=== PATIENT | female | born 1970 | race Caucasian/White ===

== ENCOUNTER 2025-04-23 17:36 | Emergency (ER) | payer SELFPAY ==
[2025-04-23 17:45] VITALS: BP 114/71; PULSE 81; RESP 20; TEMP 36.2; O2SAT 98
[2025-04-23] MEDS: Tetracaine 0.5% 4 ML BTL OP (19:06)
[2025-04-23] MEDS: Ketorolac 15 MG/ML VIAL IVP (19:26)
[2025-04-23 19:29] LABS: Abs Immature Grans 0.00 10^3/uL (0.0-0.06); HCT 36.0 % (36.0-46.0); HGB 11.6 g/dL (11.2-15.7); Immature Grans % 0.0 %; MCH 29.8 pg (27.0-33.0); MCHC 32.2 % (32.0-36.0); MCV 93 fL (80-95); MPV 12.9 fL (8.0-11.0); Platelet Count 135 10^3/uL (130-400); RBC 3.89 10^6/uL (3.93-5.22); RDW 12.3 % (11.7-14.6); RDW-SD 41.5 fL; WBC 5.69 10^3/uL (4.4-10.8)
[2025-04-23 19:32] LABS: ESR 7 mm/hr (0-30)
[2025-04-23 19:43] LABS: RBC Morphology Normal
[2025-04-23 19:45] LABS: ALT 19 U/L (14-59); AST 17 U/L (15-37); Albumin 3.4 g/dL (3.4-5.0); Alkaline Phosphatase 86 U/L (46-116); Anion Gap 5.9 mmol/L (3-11); BUN 21 mg/dL (7-18); Bilirubin, Total 0.2 mg/dL (0.2-1.0); CO2 29.1 mmol/L (21.0-32.0); Calcium 8.8 mg/dL (8.5-10.1); Chloride 107 mmol/L (98-107); Estimated GFR 102.71 (mL/min/1.73m2); Glucose 101 mg/dL (74-106); Magnesium 2.0 mg/dL (1.8-2.4); Potassium 3.8 mmol/L (3.5-5.1); Sodium 142 mmol/L (136-145); Total Protein 6.7 g/dL (6.4-8.2)
[2025-04-23 19:46] LABS: C-Reactive Protein < 0.50 mg/dL (<or=0.5)
--- NOTE | 2025-04-23 20:57 | ED.GENADUL_ITS ---
Discharge Plan Disposition Patient Disposition: Home Condition: Stable Discharge Details Clinical Impression: Redness of eye, right, Acute eye pain Primary Care Provider: Unknown,Unknown ED Provider: Renetta Durbin Home Meds and New Rx's Prescriptions: No Action escitalopram oxalate 20 mg tablet 20 mg PO DAILY Discharge Instructions Instructions: Managing acute pain at home Additional Instructions: You were seen in the emergency department today for evaluation of right eye pain and redness. You had a full physical examination with preserved vision and no increased pressure in your eye, though we are concerned for potential anterior uveitis. You need to go down to [facility] tomorrow, they have scheduled an appointment for you at 9:30 AM. You will present to the ophthalmology clinic. Please continue to use Tylenol and ibuprofen overnight for your pain, and cold compresses to reduce inflammation. They may start you on medications when you are down there for that visit. Please follow-up with your primary care provider in the next few days to discuss this visit and any symptoms that change, worsen, or persist. Thank you for allowing us to be part of your care. Stand Alone Forms: Work Release Discharge Data Discharge Date/Time-TO BE ENTERED AT DEPARTURE: 04/23/25 21:17 HPI General Mode of arrival: ambulatory . Date/Time Provider Initiated Documentation: 04/23/25 18:43 . Limitations to Documentation: no limitations . Information obtained by: patient and old records reviewed . HPI Narrative: This is a 54-year-old female patient without significant past medical history presenting for evaluation of a red painful eye. The patient reports that this started yesterday while at work, denies any trauma or injury, foreign body, and did not have any exposure to significant light changes. She states that she feels a pressure behind her eye and pain in her shinto, eye turned red. She wears corrective lenses, does not have a history of glaucoma. She tried some Tylenol last night without improvement, had difficulty sleeping due to the pain. She has never had something like this happen to her before. Vision feels slightly blurry, patient endorses photophobia and pain with EOMs. She is not experiencing any associated weakness, numbness, nausea or vomiting. Related Data Home Medications ?Medication ?Instructions ?Recorded ?Confirmed escitalopram oxalate 20 mg tablet 20 mg PO DAILY 04/2304/23/25 Allergies Allergy/AdvReac Type Severity Reaction Status Date / Time No Known Allergies Allergy Unverified 04/23/25 17:44 General Stated Complaint: EyeProblem JARVIS: 3 Exam Narrative Exam Narrative: Gen: Awake and alert, in no apparent distress HEENT: The patient has a very red painful right eye. Visual acuity, corrected, 20/30 left eye, 20/40 right eye, 20/30 bilaterally. The conjunctiva is injected, pupils are equal and reaction to light and accommodation. EOMs are full but painful, no evidence of entrapment or nystagmus. The globes are soft and symmetrical. Right eye intraocular pressure measured at 10.8. Slit lamp examination without evidence of foreign body, no significant cell and flare appreciated within the anterior chamber. Right shinto tender to palpation without tortuosity or swelling/nodularity of the temporal artery palpable. Neck: Supple Lungs: No apparent respiratory distress, normal respiratory effort. CV: Appears well perfused Abdomen: Non-distended MSK: Moves 4 extremities without apparent limitation in ROM Skin: Visualized skin without rashes, cyanosis. Neuro: Normal Gait, no obvious focal deficits or facial asymmetry. Speaks in full, clear sentences. Psych: Appropriate for situation. Course Vital Signs Vital signs: Vital Signs Temperature 36.2 C L 04/23/25 17:45 Pulse 81 04/23/25 17:45 Respiratory Rate 20 04/23/25 17:45 Blood Pressure 114/71 04/23/25 17:45 Pulse Oximetry 98 04/23/25 17:45 Temperature 36.2 C L 04/23/25 17:45 Temperature Source Oral 04/23/25 17:45 Pulse 81 04/23/25 17:45 Respiratory Rate 20 04/23/25 17:45 Blood Pressure 114/71 04/23/25 17:45 Blood Pressure Position Sitting 04/23/25 17:45 Pulse Oximetry 98 04/23/25 17:45 Oxygen Delivery Method Room Air 04/23/25 17:45 Oxygen Flow Rate 0 04/23/25 17:45 Pain Level 10 04/23/25 17:45 Lab/Test Results Lab/Test Results: Laboratory Tests Range/Units 04/23/25 19:20 WBC (4.4-10.8) 10^3/uL 5.69 RBC (3.93-5.22) 10^6/uL 3.89 L Hgb (11.2-15.7) g/dL 11.6 Hct (36.0-46.0) % 36.0 MCV (80-95) fL 93 MCH (27.0-33.0) pg 29.8 MCHC (32.0-36.0) % 32.2 RDW (11.7-14.6) % 12.3 Plt Count (130-400) 10^3/uL 135 MPV (8.0-11.0) fL 12.9 H Immature Gran % % 0.0 Neutrophils % % 52.0 Lymphocytes % % 39.0 Monocytes % % 8.0 Eosinophils % % 1.0 Basophils % % 0.0 Nucleated RBC % (0.0-0.3) % 0.0 Absolute Neutrophils (1.2-6.7) 10^3/uL 2.96 Absolute Lymphocytes (1.2-3.4) 10^3/uL 2.22 Absolute Monocytes (0.1-0.8) 10^3/uL 0.46 Absolute Eosinophils (0.0-0.7) 10^3/uL 0.06 Absolute Basophils (0.0-0.2) 10^3/uL 0.00 RBC Morphology Normal ESR (0-30) mm/hr 7 Sodium (136-145) mmol/L 142 Potassium (3.5-5.1) mmol/L 3.8 Chloride (98-107) mmol/L 107 Carbon Dioxide (21.0-32.0) mmol/L 29.1 Anion Gap (3-11) mmol/L 5.9 BUN (7-18) mg/dL 21 H Creatinine (0.55-1.02) mg/dL 0.7 Est GFR (CKD-EPI 2020) (mL/min/1.73m2) 102.71 Glucose (74-106) mg/dL 101 Calcium (8.5-10.1) mg/dL 8.8 Magnesium (1.8-2.4) mg/dL 2.0 Total Bilirubin (0.2-1.0) mg/dL 0.2 AST (15-37) U/L 17 ALT (14-59) U/L 19 Alkaline Phosphatase (46-116) U/L 86 C-Reactive Protein (<or=0.5) mg/dL < 0.50 Total Protein (6.4-8.2) g/dL 6.7 Albumin (3.4-5.0) g/dL 3.4 Medical Decision Making This is a 54-year-old female patient presented for evaluation of a painful red right eye. Differential includes but is not limited to anterior uveitis, certainly consider glaucoma though the patient's pressures are reassuringly low at this time. I considered temporal arteritis, optic neuritis. No trauma to suggest traumatic iritis. No skin rashes to suggest zoster, no foreign body or injury to suggest abrasion. No neurodeficits or vision loss to significantly increase my concern for stroke or intracranial hemorrhage. Visual acuity is largely preserved and I have a low concern for CRAO. Exam and history less consistent with retinal detachment or vitreous hemorrhage. She has no elevation in her blood pressure to suggest hypertensive emergency, press or RCVS. After my ophthalmologic evaluation, the patient was provided with Toradol and laboratory studies were obtained. I independently interpreted the laboratory studies, which show no significant leukocytosis, anemia, or thrombocytopenia. The chemistry panel is without evidence of electrolyte abnormality, kidney dysfunction, or liver injury. Her ESR and CRP are low, making temporal arteritis very unlikely. Her exam and history are most concerning for uveitis despite the lack of significant cell and flare on my nondilated exam. I reached out to [facility] ophthalmology, who feel that the patient should be followed up in their clinic in the morning. An appointment was scheduled. They recommended holding on any medications at this time, pending a complete dilated ophthalmology examination. I counseled the patient's on cold compresses, conservative management with Tylenol and ibuprofen, and at this time, the patient has had a full medical evaluation and is safe for discharge to home. They are hemodynamically stable, ambulatory, and tolerating PO. They are understanding of the follow-up plan and return precautions. They left our facility without incident. Renetta Durbin MD [facility] All Active Problems (Updated 04/23/25 @ 20:58 by Renetta Durbin MD) Acute eye pain (Acute) Redness of eye, right (Acute) Social History Smoking risk assessment performed?: No Do you feel safe at home: Yes Do you feel safe in your relationship?: Yes
[2025-04-23 21:19] VITALS: BP 96/56; PULSE 48; TEMP 35.8; O2SAT 99
== END 2025-04-23 21:17 | disposition home or self-care (01) ==
PROVIDERS: Emergency Provider Emergency Medicine
DX: H57.12 Ocular pain, left eye (principal)
CPT/HCPCS: 36415; 80053; 85652; 96374; 99284; 83735; 85025; 86140; 99283; J1885

== ENCOUNTER 2025-07-12 12:52 | Emergency (ER) | payer SELFPAY ==
[2025-07-12 12:54] VITALS: BP 126/83; PULSE 80; RESP 16; TEMP 36.4; O2SAT 94
--- NOTE | 2025-07-12 12:59 | W.ED.GENAD ---
Discharge Plan Discharge Details Chief Complaint: EyeProblem Primary Care Provider: Unknown,Unknown ED Provider: Becca Unger Home Meds and New Rx's Prescriptions: No Action escitalopram oxalate 20 mg tablet 20 mg PO DAILY HPI General Date/Time Provider Initiated Documentation: 07/12/25 12:58. HPI Narrative: Selene is a 54 year old female presents to the emergency department today for evaluation of spontaneous left subconjunctival hemorrhage Related Data Home Medications ?Medication ?Instructions ?Recorded ?Confirmed escitalopram oxalate 20 mg tablet 20 mg PO DAILY 04/23/25 07/12/25 Allergies Allergy/AdvReac Type Severity Reaction Status Date / Time No Known Allergies Allergy Verified 07/12/25 12:56 General Stated Complaint: EyeProblem JARVIS: 4 Course Vital Signs Vital signs: Vital Signs Temperature 36.4 C 07/12/25 12:54 Pulse 80 07/12/25 12:54 Respiratory Rate 16 07/12/25 12:54 Blood Pressure 126/83 07/12/25 12:54 Pulse Oximetry 94 07/12/25 12:54 Temperature 36.4 C 07/12/25 12:54 Temperature Source Oral 07/12/25 12:54 Pulse 80 07/12/25 12:54 Respiratory Rate 16 07/12/25 12:54 Blood Pressure 126/83 07/12/25 12:54 Blood Pressure Position Sitting 07/12/25 12:54 Pulse Oximetry 94 07/12/25 12:54 Oxygen Delivery Method Room Air 07/12/25 12:54 Oxygen Flow Rate 0 07/12/25 12:54 [facility] Social History Smoking risk assessment performed?: No Do you feel safe at home: Yes Do you feel safe in your relationship?: Yes
[2025-07-12] MEDS: Tetracaine 0.5% 4 ML BTL OP (14:06)
[2025-07-12] MEDS: Fluorescein STRIPS 100/BOX 1 MG OP (14:06)
[2025-07-12 14:22] LABS: HCT 39.2 % (36.0-46.0); HGB 12.9 g/dL (11.2-15.7); MCH 29.9 pg (27.0-33.0); MCHC 32.9 % (32.0-36.0); MCV 91 fL (80-95); MPV 12.8 fL (8.0-11.0); Platelet Count 157 10^3/uL (130-400); RBC 4.31 10^6/uL (3.93-5.22); RDW 12.3 % (11.7-14.6); RDW-SD 41.3 fL; WBC 5.79 10^3/uL (4.4-10.8)
[2025-07-12 14:33] LABS: INR 1.1 (0.9-1.1); PTT Activated 23.6 sec (20.6-30.2); Prothrombin Time 10.9 sec (9.1-11.1)
[2025-07-12 14:36] LABS: ALT 16 U/L (14-59); AST 16 U/L (15-37); Albumin 3.3 g/dL (3.4-5.0); Alkaline Phosphatase 92 U/L (46-116); Anion Gap 7.4 mmol/L (3-11); BUN 16 mg/dL (7-18); Bilirubin, Total 0.2 mg/dL (0.2-1.0); CO2 28.6 mmol/L (21.0-32.0); Calcium 8.9 mg/dL (8.5-10.1); Chloride 104 mmol/L (98-107); Estimated GFR 87.50 (mL/min/1.73m2); Glucose 97 mg/dL (74-106); Potassium 4.1 mmol/L (3.5-5.1); Sodium 140 mmol/L (136-145); Total Protein 7.0 g/dL (6.4-8.2)
[2025-07-12 14:50] VITALS: BP 125/65; PULSE 74; RESP 20
--- NOTE | 2025-07-12 14:50 | W.ED.GENAD ---
Discharge Plan Disposition Patient Disposition: Home Discharge Details Clinical Impression: ADRIANA (subconjunctival hemorrhage) Primary Care Provider: Unknown,Unknown ED Provider: Becca Unger Home Meds and New Rx's Prescriptions: No Action escitalopram oxalate 20 mg tablet 20 mg PO DAILY Discharge Instructions Instructions: Subconjunctival hemorrhage Additional Instructions: Call your eye doctor's office first thing Monday morning to schedule follow-up appointment that day Your blood work today was reassuring, there were no acute abnormalities noted. I recommend that you use artificial tears/lubricating eyedrops, cool compresses, and avoiding rubbing your eyes to help with symptoms. Return to emergency care if develop new fevers associate with eye pain, vision changes, new eye pain, or if you are very worried and need to be rechecked again immediately Discharge Data Discharge Date/Time-TO BE ENTERED AT DEPARTURE: 07/12/25 15:03 HPI General Date/Time Provider Initiated Documentation: 07/12/25 12:58. HPI Narrative: Selene is a 54-year-old female who presents to the emergency department today for evaluation of right eye subconjunctival hemorrhage. She reports a sudden onset of sharp eye discomfort to the medial canthus of her eye while talking with a coworker earlier today, her coworker noticed that she had blood on her eye. No recent coughing, sneezing, trauma, or foreign body entry. Pain persists to the medial canthus, especially with eye movement. Visual acuity intact. Mild headache of uncertain cause. No fevers, chills, unusual nosebleeds, blood in stool, or blood in urine. Not on anticoagulants. Has had numerous similar episodes, most recently 03/2025, evaluated by deli cutter slicer in [place], no abnormalities found. Current episode is larger than the last, but otherwise consistent with previous episodes. Related Data Home Medications ?Medication ?Instructions ?Recorded ?Confirmed escitalopram oxalate 20 mg tablet 20 mg PO DAILY 04/23/25 07/12/25 Allergies Allergy/AdvReac Type Severity Reaction Status Date / Time No Known Allergies Allergy Verified 07/12/25 12:56 General Stated Complaint: EyeProblem JARVIS: 4 Exam Narrative Exam Narrative: General Appearance: Normal. Patient alert and oriented, no acute distress. Vital signs: Within normal limits. HEENT: Significant subconjunctival hemorrhage to right eye extending from the 3 o'clock position to 6 o'clock position. PERRL, EOMs intact. No abnormalities noted to eyelids. Good relief with tetracaine instillation, no abrasions or corneal defects noted on fluorescein stain. Respiratory: Work of breathing, able to speak in full sentences Skin: Warm and dry, no rash. Psychiatric: Normal. Eyes Eyes/upper lids images:  1. location of subconjunctival hemorrhage Course Vital Signs Vital signs: Vital Signs Temperature 36.4 C 07/12/25 12:54 Pulse 80 07/12/25 12:54 Respiratory Rate 16 07/12/25 12:54 Blood Pressure 126/83 07/12/25 12:54 Pulse Oximetry 94 07/12/25 12:54 Temperature 36.4 C 07/12/25 12:54 Temperature Source Oral 07/12/25 12:54 Pulse 80 07/12/25 12:54 Respiratory Rate 16 07/12/25 12:54 Blood Pressure 126/83 07/12/25 12:54 Blood Pressure Position Sitting 07/12/25 12:54 Pulse Oximetry 94 07/12/25 12:54 Oxygen Delivery Method Room Air 07/12/25 12:54 Oxygen Flow Rate 0 07/12/25 12:54 Lab/Test Results Lab/Test Results: Laboratory Tests Range/Units 07/12/25 14:10 WBC (4.4-10.8) 10^3/uL 5.79 RBC (3.93-5.22) 10^6/uL 4.31 Hgb (11.2-15.7) g/dL 12.9 Hct (36.0-46.0) % 39.2 MCV (80-95) fL 91 MCH (27.0-33.0) pg 29.9 MCHC (32.0-36.0) % 32.9 RDW (11.7-14.6) % 12.3 Plt Count (130-400) 10^3/uL 157 MPV (8.0-11.0) fL 12.8 H PT (9.1-11.1) sec 10.9 INR (0.9-1.1) 1.1 APTT (20.6-30.2) sec 23.6 Sodium (136-145) mmol/L 140 Potassium (3.5-5.1) mmol/L 4.1 Chloride (98-107) mmol/L 104 Carbon Dioxide (21.0-32.0) mmol/L 28.6 Anion Gap (3-11) mmol/L 7.4 BUN (7-18) mg/dL 16 Creatinine (0.55-1.02) mg/dL 0.8 Est GFR (CKD-EPI 2020) (mL/min/1.73m2) 87.50 Glucose (74-106) mg/dL 97 Calcium (8.5-10.1) mg/dL 8.9 Total Bilirubin (0.2-1.0) mg/dL 0.2 AST (15-37) U/L 16 ALT (14-59) U/L 16 Alkaline Phosphatase (46-116) U/L 92 Total Protein (6.4-8.2) g/dL 7.0 Albumin (3.4-5.0) g/dL 3.3 L Medical Decision Making Initial Assessment: 54-year-old female with subconjunctival hemorrhage. Sudden sharp eye pain with visible bleeding. No trauma, coughing, sneezing, foreign body, or blood thinners. Similar episode in 03/2025, less severe, without pain. Differential Diagnosis: Subconjunctival hemorrhage. Blood work to rule out hematological abnormalities. No red flags concerning for serious etiology of eye pain such as acute angle-closure glaucoma, open globe, bacterial or viral keratitis, orbital cellulitis, scleritis/iritis ED Course: Blood work obtained. Visual acuity obtained, no abnormalities or visual defects Tetracaine instillation with fluorescein stain performed, resolution of discomfort after tetracaine was instilled in eye I independently interpreted the following tests: DBC, CMP, coags all unremarkable. Visual acuity and fluorescein stain unremarkable. Final Assessment: Blood work obtained to rule out hematological abnormalities. Urgent eye doctor appointment arranged. Workup today very reassuring, history and presentation consistent with subconjunctival hemorrhage, unclear etiology. Disposition: Follow-Up: Close f/u with eye doctor for reassessment. Patient consented to the use of ELIJAH PFSH All Active Problems (Updated 07/12/25 @ 14:57 by Becca Schwartz) ADRIANA (subconjunctival hemorrhage) (Acute) Social History Smoking risk assessment performed?: No Do you feel safe at home: Yes Do you feel safe in your relationship?: Yes
== END 2025-07-12 15:03 | disposition home or self-care (01) ==
PROVIDERS: Emergency Provider Nurse Practitioner Family
DX: H11.31 Conjunctival hemorrhage, right eye (principal)
CPT/HCPCS: 99283 ×2; 80053; 85027; 85610; 85730